=== PATIENT | female | born 1995 | race Two or more races ===

== ENCOUNTER 2024-05-17 17:54 | Emergency (ER) | payer OTHER ==
[~2024-05-17] VITALS: Ht 165.1 cm; Wt 77.6 kg
== END 2024-05-17 22:05 | disposition home or self-care (01) ==
LOC: ER 17:55
DX: R53.81 Other malaise (principal); J06.9 Acute upper respiratory infection, unspecified; Z20.822 Contact with and (suspected) exposure to COVID-19

== ENCOUNTER 2024-06-03 11:42 | Emergency (ER) | payer OTHER ==
[~2024-06-03] VITALS: Ht 165.1 cm; Wt 79.4 kg
[2024-06-03 12:36] VITALS: BP 103/70; O2SAT 99
[2024-06-03] MEDS ORDERED: PEPCID AC20 MG PO (12:36)
[2024-06-03 13:38] LABS: HEMATOCRIT 38.5 % (36.0-45.00); MEAN CELL VOLUME 82.9 fL (80.00-100.00); MEAN CORPUSCULAR HGB CONC 33.8 g/dl (32.0-36.0); PLATELET COUNT 363 K/uL (150-450); RED BLOOD COUNT 4.65 M/uL (4.00-6.00); RED CELL DISTRIBUTION WIDTH 13.1 % (11.5-14.5)
[2024-06-03 14:15] LABS: PH,URINE 6.5 (5.0-8.0); URINE APPEARANCE Clear; URINE BILIRRUBIN Negative (NEGATIVE); URINE BLOOD Negative; URINE COLOR Yellow; URINE GLUCOSE Negative (NEGATIVE); URINE KETONE Negative (NEGATIVE); URINE LEUKOCYTE Moderate; URINE NITRATE Negative; URINE PROTEIN Negative (NEGATIVE); URINE UROBILINOGEN 0.2 E.U./dl
[2024-06-03 14:17] LABS: URINE BACTERIA 352.6 uL (0.0-1933); URINE EPITHELIAL CELLS 7.7 uL (0.0-38.8); URINE RBC 11.1 uL (0.0-20.8); URINE WBC 9.1 uL (0.0-23.2)
[2024-06-03 14:28] LABS: CALCIUM 8.9 mg/dL (8.5-10.1); CREATININE SERUM 0.57 mg/dL (0.55-1.02); GFR 126.3; POTASSIUM 3.92 mEq/L (3.5-5.1)
[2024-06-03] MEDS ORDERED: NEXIUM20 M1 PO (17:53)
[2024-06-03] MEDS ORDERED: DUI500 PO (17:53)
== END 2024-06-03 18:04 | disposition home or self-care (01) ==
LOC: ER 11:44
PROVIDERS: General Practice
DX: O23.41 Unspecified infection of urinary tract in pregnancy, first trimester (principal); N39.0 Urinary tract infection, site not specified; Z3A.09 9 weeks gestation of pregnancy